=== PATIENT | male | born 1975 | race Caucasian/White ===

== ENCOUNTER → 2017-08-11 | Outpatient (CLI) | payer OTHER ==
[~2017-08-11] MED LIST: CARAFATE1 GM PO; CICLOPIROX TOP; OXYBUTYNIN CHLOR5 MG PO; PRILOSEC20 MG PO
== END | disposition short-term general hospital (02) ==
LOC: CLUROL 09:03
DX: N32.81 Overactive bladder (principal); R35.0 Frequency of micturition; R39.15 Urgency of urination